=== PATIENT | male | born 1985 | race African-American/Black ===

== ENCOUNTER 2019-05-18 05:06 | Emergency (ER) | payer MEDICAID ==
[~2019-05-18] VITALS: Ht 193 cm; Wt 109.5 kg
[2019-05-18 05:12] VITALS: BP 148/108
[2019-05-18] MEDS ORDERED: IBUP-2071 PO (05:14)
[2019-05-18] MEDS ORDERED: AMOX TR/POT CLAV 875 MG/125 MG TABLET PO ONE (05:30)
[2019-05-18] MEDS ORDERED: ACETAMINOPHEN 500 MG TABLET PO ONE (05:30)
[2019-05-18] MEDS ORDERED: IBUPROFEN 600 MG TABLET PO ONE (05:30)
== END 2019-05-18 05:31 | disposition home or self-care (01) ==
LOC: EMS 05:06
DX: K08.89 Other specified disorders of teeth and supporting structures (principal); F17.210 Nicotine dependence, cigarettes, uncomplicated; F12.90 Cannabis use, unspecified, uncomplicated
CPT/HCPCS: 99406